=== PATIENT | female | born 1980 | race Two or more races ===

== ENCOUNTER 2022-07-16 11:21 | Emergency (ER) | payer OTHER ==
[~2022-07-16] VITALS: Ht 157.5 cm; Wt 90.1 kg
[2022-07-16 12:03] VITALS: BP 108/79
[2022-07-16] MEDS ORDERED: ASPirin 81 mg TAB PO ONE (12:15)
[2022-07-16 13:18] LABS: Basophils # (auto) 0.1 10 ^3/uL (0-0.2); Eosinophils # (auto) 0.1 10 ^3/uL (0-0.8); Hemoglobin 11.9 g/dL (12.2-16.2); Lymphocytes # (auto) 1.4 10 ^3/uL (0.4-5.4); Monocytes # (auto) 0.4 10 ^3/uL (0-1.3); Neutrophils # (auto) 5.5 10 ^3/uL (1.6-8.6)
[2022-07-16 13:20] LABS: Hematocrit 35.7 % (36.0-46.0); Lymphocytes % (auto) 19.4 % (10.0-50.0); Mean Corpuscular Hemoglobin 26.7 pg (28.0-32.0); Mean Corpuscular Hgb Conc. 33.3 g/dL (32.0-36.0); Mean Corpuscular Volume 80.2 fL (80.0-100.0); Neutrophils % (auto) 73.6 % (37.0-80.0); Red Blood Cells 4.45 10^6/uL (4.0-5.20); Red Cell Distribution Width 15.6 % (11.8-14.3); White Blood Cell 7.4 10^3/uL (4.4-10.8)
[2022-07-16 13:45] LABS: Albumin 3.9 g/dL (3.4-5.0); BUN/Creatinine Ratio 19.2; Bilirubin, Total 0.3 mg/dL (0.2-1.0); Calcium 9.2 mg/dL (8.5-10.1); Potassium 4.3 mmol/L (3.5-5.1); Total Protein 7.2 g/dL (6.4-8.2)
== END 2022-07-16 23:57 | disposition home or self-care (01) ==
LOC: ER 11:21
DX: R07.89 Other chest pain (principal); F41.9 Anxiety disorder, unspecified; R10.2 Pelvic and perineal pain; Z88.0 Allergy status to penicillin
CPT/HCPCS: 36415; 71046; 80053; 83880; 84484; 84702; 85025; 85379; 93005